=== PATIENT | male | born 1985 ===

== ENCOUNTER 2016-09-15 14:20 | Emergency (ER) | payer OTHER ==
[2016-09-15 15:52] VITALS: BP 122/65
--- NOTE | 2016-09-15 16:23 | UC ---
Complaint Male HPI - HPI Summary HPI Summary: THREE WEEKS AGO HAD LOW BACK PAIN ON LEFT SIDE THAT WENT AWAY, FOR LAST THREE DAYS HAS HAD BURNING WITH URINATION. HISTORY OF KIDNEY STONES SEVERAL YEARS AGO. MONOGAMOUS RELATIONSHIP FOR 11 YEARS. NO DISCHARGE OR PENILE LESIONS. NO DIARRHEA OR CONSTIPATION. NO NEW MEDICATIONS. - History of Current Complaint Chief Complaint: UCGU Stated Complaint: UTI COMPLAINT Time Seen by Provider: 09/15/16 16:00 Hx Obtained From: Patient Onset/Duration: Gradual Onset, Lasting Weeks, Worse Since - TWO DAYS Timing: Intermittent Severity Initially: Mild Severity Currently: Mild Character: Burning Aggravating Factor(s): Voiding Alleviating Factor(s): Nothing Associated Signs And Symptoms: Positive: Back Pain - RESOLVED. Negative: Fever , Hematuria, Dysuria, Constipation, Blood in Stool, Rectal Pain, Appetite, Nausea, Vomiting(# Of Episodes =), Penile Swelling, Penile Discharge - Risk Factors Testicular Torsion: Negative - Allergies/Home Medications Allergies/Adverse Reactions: Allergies Allergy/AdvReac Type Severity Reaction Status Date / Time No Known Allergies Allergy Verified 09/15/16 15:51 Home Medications: Home Medications Multiple Vitamins W/ Minerals [Multivitamin Adults] 09/15/16 [History] PMH/Surg Hx/FS Hx/Imm Hx Previously Healthy: Yes Endocrine History Of: Denies: Diabetes, Thyroid Disease Cardiovascular History Of: Denies: Cardiac Disorders, Hypertension Respiratory History Of: Denies: COPD, Asthma GI/ History Of: Denies: Ulcer - Surgical History Surgery Procedure, Year, and Place: splenectomy 2004 - Family History Known Family History: Positive: Renal Disease - KIDNEY STONES - Social History Occupation: Employed Full-time Lives: With Family Alcohol Use: Weekly Substance Use Type: None Smoking Status (MU): Never Smoked Tobacco Review of Systems Constitutional: Negative Skin: Negative Eyes: Negative ENT: Negative Respiratory: Negative Cardiovascular: Negative Gastrointestinal: Negative Genitourinary: Dysuria, Frequency, Urgency Neurovascular: Negative Musculoskeletal: Negative Neurological: Negative Psychological: Negative All Other Systems Reviewed And Are Negative: Yes Physical Exam Triage Information Reviewed: Yes Appearance: Well-Appearing, No Pain Distress, Well-Nourished Vital Signs: Initial Vital Signs Temp 98.6 F 09/15/16 15:46 Pulse 77 09/15/16 15:46 Resp 16 09/15/16 15:46 BP 122/65 09/15/16 15:46 Pulse Ox 98 09/15/16 15:46 Vital Signs Reviewed: Yes Eye Exam: Normal Eyes: Positive: Conjunctiva Clear ENT Exam: Normal ENT: Positive: Normal ENT inspection, Hearing grossly normal, Pharynx normal, TMs normal Dental Exam: Normal Neck exam: Normal Neck: Positive: Supple, Nontender, No Lymphadenopathy Respiratory Exam: Normal Respiratory: Positive: Chest non-tender, Lungs clear, Normal breath sounds, No respiratory distress, No accessory muscle use Cardiovascular Exam: Normal Cardiovascular: Positive: RRR, No Murmur, Pulses Normal Abdominal Exam: Normal Abdomen Description: Positive: Nontender, No Organomegaly. Negative: CVA Tenderness (R), CVA Tenderness (L) Musculoskeletal Exam: Normal Musculoskeletal: Positive: Strength Intact, ROM Intact, No Edema Neurological Exam: Normal Psychological Exam: Normal Skin Exam: Normal Complaint Male Course/Dx - Differential Dx/Diagnosis Differential Diagnosis/HQI/PQRI: Prostatitis, Pyelonephritis, Ureteral Calculi, Urinary Tract Infection Provider Diagnoses: URINARY TRACT INFECTION Discharge - Discharge Plan Condition: Stable Disposition: HOME Prescriptions: Phenazopyridine TAB* [Pyridium 100 mg TAB*] 100 mg PO TID PRN #15 tab PRN Reason: Pain Sulfamethox/Trimethoprim DS* [Bactrim DS 800/160 TAB*] 1 tab PO BID #10 tab Patient Education Materials: Urinary Tract Infection in Men (ED) Referrals: [facility] [Outside] Shoaib Bui MD [Medical Doctor] -
== END 2016-09-15 16:16 | disposition home or self-care (01) ==
LOC: UCEAST 14:20
DX: N39.0 Urinary tract infection, site not specified (principal); Z87.442 Personal history of urinary calculi
CPT/HCPCS: 81003; 87086; 99202; G0463

== ENCOUNTER 2017-04-22 12:01 | Observation (INO) | payer OTHER ==
[2017-04-22 15:55] LABS: Add Diff/Slide Review? Slide Review Added; Comments Flag Yes; Hematocrit 44 % (42-52); Hemoglobin 14.7 g/dl (14.0-18.0); Mean Corpuscular HGB Conc 33 g/dl (31-36); Mean Corpuscular Hemoglobin 31 pg (27-31); Mean Corpuscular Volume 93 fL (80-94); Mean Platelet Volume 9 um3 (7.4-10.4); Red Blood Count 4.75 10^6/ul (4.0-5.4); Red Cell Distribution Width 14 % (10.5-15); White Blood Count 18.8 10^3/ul (3.5-10.8)
[2017-04-22 16:09] LABS: Albumin 3.7 g/dL (3.2-5.2); BUN/Creatinine Ratio 15.4 (8-20); Calcium 8.7 mg/dL (8.6-10.3); EGFR African American 147.4 (>60); EGFR Non-African American 114.6 (>60); Globulin 2.6 g/dL (2-4); Potassium 3.6 mmol/L (3.5-5.0); Total Bilirubin 1.1 mg/dL (0.2-1.0); Total Protein 6.3 g/dL (6.4-8.9)
[2017-04-22 17:15] LABS: Eosinophils % 3 % (0-6); Neutrophil % 25 % (38-83); Reactive Lymph % 26 % (0-6); Target Cells 1+
[2017-04-22 17:16] LABS: Add Path Review? YES
[2017-04-22 17:17] LABS: EBV Response NO
[2017-04-22 17:31] LABS: Mono Internal Control QC Line Present
[2017-04-22 17:32] LABS: Manual Entry Verification MER0007
--- NOTE | 2017-04-22 19:57 | RAD ---
INDICATION: Abnormal liver enzymes COMPARISON: None TECHNIQUE: Longitudinal and transverse scans of the right upper quadrant were obtained. Doppler interrogation of the hepatic and portal venous system was performed. FINDINGS: Liver: The liver is normal in size and echogenicity. There are no focal masses. The liver measures 16.5 cm in cephalocaudal dimension. Vessels: There is normal hepatic and portal venous flow. Bile ducts: There is no evidence of intrahepatic or extrahepatic ductal dilatation. The common duct measures 0.3 cm. Gallbladder: The sonographic appearance of the gallbladder is normal. There is no evidence of cholelithiasis, thickening of the gallbladder wall, or pericholecystic fluid. Pancreas: The visualized pancreas appears normal Right kidney: The right kidney is normal in size and echogenicity. There are no masses or calculi. There is no evidence of hydronephrosis. The right kidney measures 11.0 x 4.3 x 5.4 cm. IVC and aorta: The aorta and superior vena cava appear normal. Fluid: There is no ascites. Other: None. IMPRESSION: NORMAL EXAMINATION.
--- NOTE | 2017-04-22 22:24 | HP ---
CC: Dr. Molina* HISTORY AND PHYSICAL: DATE OF ADMISSION: 04/22/2017. PRIMARY CARE DOCTOR: Dr. Molina. MY ATTENDING WHILE IN THE HOSPITAL: Dr. Waldo Pisano* (dictated by CHACE Bautista). CHIEF COMPLAINT: Fatigue and systemic symptoms for 3 weeks. HISTORY OF PRESENT ILLNESS: The patient is a 31-year-old male with past medical history significant for splenectomy after trauma and nephrolithiasis who presented to his primary care doctor earlier today with 3 weeks of fatigue, nausea, fevers, chills, and other systemic symptoms and had previously been seen by his primary care doctor and had blood drawn as well as having a urinalysis and a chest x-ray. The patient was called by his primary care doctor today because his blood results had come back and his white count and transaminases levels were up. The patient's blood work showed lymphocytic predominance with atypical lymphocytes and negative serology for hepatitis A, B , and C. Regardless of this, the patient's primary care doctor was concerned about his splenectomized state and wanted him to be admitted to the hospital for further evaluation for systemic infection. The patient denies chest pain, shortness of breath, abdominal pain, urinary symptoms, back pain. The patient denied any sick contacts or sore throats. The patient states that he had swollen axillary lymph nodes on exam with his primary care doctor. The patient denies any episodes like this before. The patient's is not having similar symptoms. The patient has occasionally been taking ibuprofen for pain. The patient feels above average today and has no acute complaints. The patient did not note any tick bites. The patient has not had any recent travel. The patient received his splenectomy vaccines at the time of the accident. PAST MEDICAL HISTORY: Splenectomy secondary to trauma from a snowboarding accident and nephrolithiasis. MEDICATIONS: Ibuprofen 400 mg as needed for pain and fever. ALLERGIES: No known allergies. FAMILY HISTORY: The patient's father is alive and heathy at 73. The patient's mother is alive and healthy. The patient's grandparents lived to be old age and he does not know what they of. SOCIAL HISTORY: The patient denies tobacco abuse or illicit drug abuse. The patient drinks occasional alcohol. The patient works for [employer] in [place]. The patient is and has 2 very young kids. REVIEW OF SYSTEMS: A 14-point review of systems was conducted and was negative except as above. PHYSICAL EXAMINATION GENERAL: The patient is a 31-year-old male, who appears his stated age, and sitting comfortably on exam bed, in no acute distress. VITAL SIGNS: Temperature 98.1, pulse rate 72, respiratory rate 16, oxygen saturation 100%, blood pressure 125/68. HEENT: Head: Normocephalic, atraumatic. Sclerae anicteric with slight conjunctival injection. Nasal mucosa is moist. Oral mucosa is moist. Slight erythema of the posterior pharynx without exudate. NECK: No lymphadenopathy. Supple, nontender. No carotid bruit auscultated. RESPIRATORY: Clear to auscultation bilaterally. No wheezes, rales, or rhonchi. Good air exchange bilaterally. CARDIAC: Regular rate and rhythm. No clicks, murmurs, gallops, or rubs. ABDOMEN: Slight tenderness to palpation over the left upper quadrant, which subsided after initial palpation. The patient has a large midline scar representing previous intraabdominal surgery. Bowel sounds present, normoactive in all 4 quadrants, nondistended. No hepatosplenomegaly. GENITOURINARY: No suprapubic tenderness or CVA tenderness. NEURO: Cranial nerves II through XII grossly intact. No focal deficits. Gait normal. PSYCHIATRIC: Pleasant and cooperative. SKIN: Clean, dry, and intact. No rashes DIAGNOSTIC STUDIES/LAB DATA: White blood cell count 18.8, hemoglobin 14.7, platelet count 390. Sodium 140, potassium 3.6, chloride 108, carbon dioxide 27 , anion gap 5, BUN 12, creatinine 0.78, glucose 146, calcium 8.7, total bilirubin 1.1. AST 204, ALT 408. Alkaline phosphatase 135. Total protein 6.3. Albumin 3.7, globulin 2.6. IMPRESSION AND PLAN: The patient is a 31-year-old male with a past medical history significant for splenectomy with infectious disease with leukocytosis of unclear origin as well as transaminitis. 1. Leukocytosis and transaminitis. This could represent infectious mononucleosis of unknown etiology. We will test for CMV, EBV, and toxoplasmosis as well as Lyme disease or other tick borne illness. Blood cultures will also be drawn. Other etiologies could include gallbladder disease with choledocholithiasis. We will order ultrasound of the gallbladder to assess for this. The patient does not meet sepsis criteria and is otherwise in no acute distress. No antibiotics will be given at this time. We will consult Dr. Khadar Grider of Infectious Disease. 2. DVT prophylaxis. The patient is independent, has no deep venous thrombosis risk factors. The patient will be encouraged to ambulate frequently. 3. Code status. The patient is a full code. The patient's healthcare proxy is his , Deedee Figueroa. 4. The patient will have a regular unrestricted diet. 5. The patient will be admitted to observation and be discharged with length of stay less than 2 midnights. This plan has been discussed with my attending, Dr. Waldo Pisano, who is in agreement. CHACE BAUTISTA [id number]/CPS #: [id number] MTDD
--- NOTE | 2017-04-22 23:58 | CONS ---
CONSULTATION REPORT: DATE OF CONSULTATION: 04/22/17 REQUESTING PROVIDER: CHACE Chaudhry CONSULTING SERVICE: Infectious Disease. REASON FOR CONSULTATION: Transaminitis and leukocytosis. IMPRESSION: 1. Two weeks of fever, myalgia, malaise. Workup as an outpatient showed white blood cell count of 25,000, mostly neutrophils, also with significant atypical lymphocytes and ALT in the 400 range with elevated alkaline phosphatase, upper level normal of bilirubin. These are all fairly nonspecific f indings and could point to, given the duration of symptoms without him becoming particularly ill, a viral infection involving the liver including Cristine-Barnett virus, cytomegalovirus, parasites includi ng toxoplasmosis, tick-borne infection that is less likely with the leukocytosis, more common with l eukopenia, but we can check for various that would cause transaminitis including Anaplasma and Ehrli warren. Borrelia miyamotoi would be a consideration as well. 2. Status post splenectomy due to trauma. RECOMMENDATIONS: Blood cultures, CMP. He had negative hepatitis C antibody, negative hepatitis B s urface antigen and core IGM for hepatitis B as well as hepatitis A IgM as an outpatient, so we will skip those, tick panel PCR, toxoplasma, EBV, CMV serology. Ultrasound of the gallbladder; given the patient feels well, I discussed with CHACE Chaudhry that once the tests are drawn, if the ultra sounds are negative, he can follow up on these issues as an outpatient. HISTORY OF PRESENT ILLNESS: This is a 31-year-old man with history of splenectomy admitted with tra nsaminitis. He had been well until about 2 weeks ago, developed malaise, some myalgia, decreased ap petite from time to time. No diarrhea or vomiting, but some occasional diffuse abdominal pain. He was seen by Dr. Molina, had a liver function tests drawn, there were elevated ALT in the 400 rang e. White blood cell count 27,000 today. He was directed to the hospital. He had previously had th e acute hepatitis panel negative as noted above. He has never had an infection requiring hospitaliz ation. He has had no travel. He has had no sick contacts. He has a couple of dogs. He spent some time outdoors here and no ticks that he has seen. PAST MEDICAL HISTORY: Status post splenectomy after a snowboarding accident. MEDICATIONS: 1. None. 2. Herbal and dslq-nip-leqqkfn medicines, none. ALLERGIES: No known drug allergies. FAMILY HISTORY: No recurrent infection or tuberculosis. SOCIAL HISTORY: He works for [employer] in [place]. He lives her with his and twyla kevin, who have all been well. They moved here from [facility] about 6 months ago. No trave l since then. They have pet dogs and spent time outdoors in the area. REVIEW OF SYSTEMS: A 14-point review of systems was negative except as noted above. PHYSICAL EXAM: Vital signs: Temperature 36.7, heart rate 70, respiratory rate 16, blood pressure 1 25/68, O2 sat is 100% on room air. In general, he is awake, not in distress. Neurologic: He is or iented x3. Follows all commands. HEENT: There is no conjunctival hemorrhage. Oropharynx is witho ut lesions. Neck: Supple without nuchal rigidity. Lymph Nodes: There is no cervical, supraclavic ular, inguinal, axillary or epitrochlear lymphadenopathy. Heart has regular rate and rhythm without murmurs, rubs or gallops. Lungs are clear to auscultation bilaterally. Abdomen is soft, nontender and nondistended. There are bowel sounds present. I cannot palpate the liver edge. Skin: There i s no rash or splinter hemorrhages. Musculoskeletal: There is no spine tenderness to palpation or nga int synovitis. LABORATORY DATA: Pending. Please see impression and recommendations as outlined above, which I have discussed CHACE Chaudhry. Thank you for asking me to see Mr. Figueroa in consultation. [id number]/[facility] #: [id number]
[2017-04-23 07:09] LABS: Hematocrit 44 % (42-52); Hemoglobin 14.8 g/dl (14.0-18.0); Mean Corpuscular HGB Conc 34 g/dl (31-36); Mean Corpuscular Hemoglobin 31 pg (27-31); Mean Corpuscular Volume 92 fL (80-94); Mean Platelet Volume 10 um3 (7.4-10.4); Red Blood Count 4.79 10^6/ul (4.0-5.4); Red Cell Distribution Width 14 % (10.5-15); White Blood Count 18.3 10^3/ul (3.5-10.8)
[2017-04-23 07:14] LABS: Add Diff/Slide Review? Slide Review Added; Comments Flag Yes
[2017-04-23 07:52] LABS: Albumin 3.6 g/dL (3.2-5.2); BUN/Creatinine Ratio 14.5 (8-20); EGFR African American 137.2 (>60); EGFR Non-African American 106.7 (>60); Globulin 2.6 g/dL (2-4); Potassium 4.5 mmol/L (3.5-5.0); Total Bilirubin 1.3 mg/dL (0.2-1.0); Total Protein 6.2 g/dL (6.4-8.9)
[2017-04-23 09:51] VITALS: BP 99/59
[2017-04-23 23:17] LABS: B. miyamotoi PCR, B Negative (Negative); Babesia divergens/MO-1 Negative (Negative); Babesia ducani Negative (Negative); Ehrlichia ewingii/canis Negative (Negative)
--- NOTE | 2017-04-24 07:28 | DS ---
DISCHARGE SUMMARY: DATE OF ADMISSION: 04/22/17 DATE OF DISCHARGE: 04/23/17 PRIMARY CARE PHYSICIAN: Dr. Molina. MY ATTENDING WHILE IN THE HOSPITAL: Dr. Waldo Pisano* (dictated by CHACE Bautista). CONSULTING PROVIDER: Dr. Khadar Grider. PRIMARY DISCHARGE DIAGNOSIS: Cytomegalovirus mononucleosis. SECONDARY DISCHARGE DIAGNOSIS: Status post splenectomy due to trauma. STUDIES DONE WHILE IN THE HOSPITAL: Gallbladder ultrasound from 04/22/17 read as normal examination. MEDICATIONS AT DISCHARGE: None. HOSPITAL COURSE: This is a brief summary of the patient's presentation. For more detail, please see the history and physical from CHACE Bautista on . In brief, the patient is a 31-year-old male with a past medical history significant as above who presented to his primary care doctor with 3 weeks of fatigue, nausea, fevers and chills, after she called him in for a grossly abnormal lab work including a white blood cell count of 26,000, and transaminases elevated to 600 ALT and 400 AST approximately. The patient's primary care doctor was concerned because he had no spleen and believed he might be suffering from sepsis. The patient felt better than he generally had and had no signs of septic shock. The patient's outpatient workup included negative studies for hepatitis A, B and C. The patient's vital signs were stable without fever. The patient had no other symptoms. The patient's had not been having similar symptoms. The patient does not remember any tick bites. The patient received his splenectomy vaccinations. Per ID consultation , the patient had a gallbladder ultrasound, a tick-borne panel, and serology studies for EBV, CMV, and toxoplasmosis. The patient was kept overnight pending the results of these labs. The patient had no complaints overnight and stated that in the morning, he was feeling even better. The patient's monospot was negative, but his CMV, IgM and IgG were both positive. The patient's white blood cell count decreased from 26 to 18.8 on 04/22/17 and 18.3 on 04/23/17 with a lymphocytic predominance at 78.7 and 72.3%. The patient also had a 26% reactive lymphocytes. The patient's AST was 204 and 174 and ALT were 408 and 353. The rest of the patient's serology panel is still pending and should be available in approximately 5 days from the [facility]. The patient was deemed to be a good candidate for discharge as the CMV and mononucleosis was generally a self- resolving disease in immunocompetent patients and he was deemed to be immunocompetent despite his splenic state. The patient was in agreement to be discharged to home without any treatments for his disease. The patient stated he would take zkan-hjy-nepabsm medications as needed. PHYSICAL EXAM ON DAY OF DISCHARGE: General: The patient is a 31-year-old male who appears stated age and is sitting comfortably in exam bed in no acute distress. Vital Signs: Temperature 98.1, pulse rate 85, respiratory rate 16, oxygen saturation 99% on room air, blood pressure 99/59. HEENT: Head normocephalic, atraumatic. Slight conjunctival injection. Sclerae anicteric. Mucous membranes moist. Slight pharyngeal erythema without exudate. Neck: Supple, nontender. No lymphadenopathy. No carotid bruit auscultated. Cardiac : Regular rate and rhythm. No rhonchus, murmurs, gallops or rubs. Pulses 2+ in bilateral posterior tibial, dorsalis pedis, and radial areas. No edema. Respiratory: Clear to auscultation bilaterally. No wheezes, rales or rhonchi. Abdomen: Soft, nontender, nondistended. Bowel sounds are present and normoactive in all 4 quadrants. Large midline scar consistent with previous abdominal surgery present. No hepatomegaly, no splenomegaly. Skin: Clean, dry , and intact with no rash. Neuro: Cranial nerves II through XII grossly intact. Normal gait. No focal deficits. Psychiatric: Pleasant and cooperative. LABORATORY DATA: On day of discharge reviewed in hospital course. DISCHARGE PLAN: The patient will be discharged to follow up with his primary care doctor with a diagnosis of CMV mononucleosis and no treatment warranted at this time. The patient should take [id number] medications as he has been such as atenolol, ibuprofen to control his systemic symptoms. The patient should expect this to be a self-limiting illness and to start feeling better sometime in the next weeks to months. The patient is free to return to work. ACTIVITY: As tolerated. DIET: Regular, unrestricted diet. TIME SPENT: Approximately 40 minutes was spent on this discharge, 20 of which was spent [id number] with the patient obtaining history and physical and discussing treatment plan. CHACE BAUTISTA [id number]/[facility] #: [id number] MYRA
[2017-04-24 15:56] LABS: Toxoplasma IgG Antibody Negative (Negative); Toxoplasma IgG Antibody Index <3 IU/mL; Toxoplasma IgM Antibody Negative (Negative)
== END 2017-04-23 13:30 | disposition home or self-care (01) ==
LOC: MED 12:57
PROVIDERS: ADMIT Internal Medicine; ATTEND Internal Medicine
DX: B27.10 Cytomegaloviral mononucleosis without complications (principal); Z90.81 Acquired absence of spleen; R53.83 Other fatigue; R11.0 Nausea; R50.9 Fever, unspecified; D72.829 Elevated white blood cell count, unspecified; R74.0 Nonspecific elevation of levels of transaminase and lactic acid dehydrogenase [LDH]; R94.5 Abnormal results of liver function studies
CPT/HCPCS: 36415; 76705; 80053; 85025; 85060; 86308; 86644; 86645; 86663; 86777; 86778; 87040; 87798; G0378